=== PATIENT | female | born 1980 | race Caucasian/White ===

== ENCOUNTER 2016-10-31 10:30 | Emergency (ER) | payer SELFPAY ==
[~2016-10-31] VITALS: Ht 170.2 cm; Wt 136.1 kg
--- NOTE | ~2016-10-31 | CR281 ---
[facility] A Service of [facility] & [facility] RADIOLOGY TEXT RESULTS PATIENT: PETTY ADEN LOCATION: [facility] : 82 UNIT #: [id number] AGE: [address]: Gisselle Forbes APRN SEX: F ORDER DR: [id number] [facility] [address] [place], [place] [address] [id number] E MR#: [id number] Acc #: [id number] NAME: PETTY ADEN : 1980 SEX: F STUDY DATE/TIME: 10/31/2016 11:43 UNIT: [facility] ROOM: STUDY DESCRIPTION: CR Wrist Min 3 View Lt Attending Physician: Gisselle Forbes A.P.R.N. Ordering Physician: Gisselle Forbes A.P.R.N. Primary Care Physician: No Primary Care Physician MEDICAL IMAGING REPORT This report is preliminary unless electronic signature is present EXAM Left wrist. INDICATIONS Left wrist pain for 7 days. FINDINGS Three views of the left wrist without comparison. There is no acute fracture or dislocation. Alignment is anatomic. IMPRESSION Negative left wrist. Dictated by... Eliseo Mckay M.D. THIS IS AN ELECTRONICALLY VERIFIED REPORT Eliseo Mckay M.D. at 11/01/2016 5:11 PM TRACY/isi TD: 10/31/2016 16:00 JOB #: [id number] MEDICAL IMAGING REPORT Page 1 of 1 COPY
[~2016-10-31 10:30] MED LIST: ACIPHEX20 MG PO; ATARAX PO; CELEBREX PO; CLARITIN10 MG PO; FLOVENT HFA12 GM INH; LITHIUM PO; MEDROL PO; METFORMIN PO; NAPROXEN PO; NEXIUM PO; QVAR7.3 GM INH; SEROQUEL PO; VICODIN 5/500 T1 TAB PO; ZYRTEC PO
== END 2016-10-31 12:50 | disposition home or self-care (01) ==
LOC: CFTX 10:30 → CED 10:30 → CFTX 12:04
DX: M25.532 Pain in left wrist (principal); I10 Essential (primary) hypertension; D64.9 Anemia, unspecified; Z88.1 Allergy status to other antibiotic agents
CPT/HCPCS: 29125; 73110; 99283

== ENCOUNTER 2016-12-23 10:09 | Emergency (ER) | payer SELFPAY ==
[~2016-12-23] VITALS: Ht 170.2 cm; Wt 136.1 kg
--- NOTE | ~2016-12-23 | CT116 ---
[facility] A Service of [facility] & [facility] RADIOLOGY TEXT RESULTS PATIENT: PETTY ADEN LOCATION: [facility] : 82 UNIT #: [id number] AGE: [address]: Aisha Lopez SEX: F ORDER DR: [id number] [facility] [address] [place], [place] [address] [id number] E MR#: [id number] Acc #: [id number] NAME: PETTY ADEN. : 1980 SEX: F STUDY DATE/TIME: 12/23/2016 11:30 UNIT: [facility] ROOM: STUDY DESCRIPTION: CT Soft Tissue Neck Wo Cont Attending Physician: Aisha Lopez P.A.-C. Ordering Physician: Aisha Lopez P.A.-C. Primary Care Physician: Gisella Alicea M.D. MEDICAL IMAGING REPORT This report is preliminary unless electronic signature is present EXAM CT neck soft tissue without contrast. HISTORY Feels like something stuck in throat for a month. Hard do swallow for a month. TECHNIQUE This CT exam was performed with one or more of the following radiation dose reduction techniques: automatic exposure control, adjustment of mA and/or kV according to patient size, and iterative reconstruction. FINDINGS Study performed without contrast to evaluate for foreign body. This limits the study. No radiopaque foreign body is seen. The parotid glands are unremarkable. The submandibular glands and thyroid gland are unremarkable. There is asymmetric fullness of tissue in the right side vallecula. This could be asymmetric lymphoid tissue but possibility of a mucosal mass should be excluded on direct visualization. ENT consultation recommended. The epiglottis is well defined. The airway is coapted at the level of soft palate related to prominent tissues and likely habitus. No definite lymphadenopathy using anatomic imaging criteria. There is a mucous retention cyst or polyp in the right maxillary sinus. No sinus air-fluid level. No prevertebral fluid collection suspected. There is also some fullness of soft tissue seen at the upper aspect of the cricoid cartilage posteriorly. Attention to this area is also recommended with direct visualization. This is approximately at the level of the cricoarytenoid joints. IMPRESSION 1. No radiopaque foreign body suspected. 2. Asymmetric soft tissue at the right side tongue base and the right vallecula. This could be asymmetric lymphoid tissue but correlation STS. [facility] A Service of [facility] & [facility] RADIOLOGY TEXT RESULTS PATIENT: PETTY ADEN LOCATION: [facility] : 82 UNIT #: [id number] AGE: [address]: Aisha Lopez SEX: F ORDER DR: with direct visualization is recommended to exclude mucosal neoplastic disease. 3. There is also some fullness of tissue at the posterior aspect of the upper margin of the cricoid approximately the level of the cricoarytenoid joints. Evaluation of this area with direct visualization also recommended. 4. Nothing to suggest lymphadenopathy using anatomic imaging criteria. 5. The study is limited by the lack of IV contrast media. 6. Mucous retention cyst or polyp in the right maxillary sinus. Dictated by... Nathaly Suarez M.D. THIS IS AN ELECTRONICALLY VERIFIED REPORT Nathaly Suarez M.D. at 12/24/2016 2:46 PM GRETEL/millie TD: 12/23/2016 21:16 JOB #: [id number] MEDICAL IMAGING REPORT Page 1 of 1 COPY
== END 2016-12-23 12:50 | disposition home or self-care (01) ==
LOC: CFTX 10:09 → CED 10:09 → CFTX 11:03
DX: J02.9 Acute pharyngitis, unspecified (principal); K14.9 Disease of tongue, unspecified; E11.9 Type 2 diabetes mellitus without complications; I10 Essential (primary) hypertension; F41.9 Anxiety disorder, unspecified; F32.9 Major depressive disorder, single episode, unspecified; Z88.8 Allergy status to other drugs, medicaments and biological substances; Z79.899 Other long term (current) drug therapy
CPT/HCPCS: 70490; 99283